=== PATIENT | male | born 1970 | race Two or more races ===

== ENCOUNTER 2025-10-18 21:18 | Emergency (ER) | payer MEDICAID ==
[~2025-10-18] VITALS: Ht 175.3 cm; Wt 88.6 kg
[~2025-10-18 21:18] MED LIST: ONDA-243 PO
--- NOTE | 2025-10-18 21:41 | Physician Documentation ---
History of Present Illness ~ Chief Complaint: Jaw Pain Stated Complaint: JAW SWELLING Time Seen by MD: 21:27 HPI 54-year-old male presents to the ED with a complaint of toothache with tissue swelling and a raised area on his left lower cheek. Denies any fevers or nausea vomiting but reports increased pain and swelling. States he has has a long history of tooth problems was supposed to have multiple teeth extracted but they were not for unknown reasons Day of Onset: Oct 18, 2025 Medication Reconciliation Allergies: Coded Allergies: No Known Allergies (Unverified , 10/03/17) Scheduled PRN ONDANSETRON ODT 4mg tablet (Ondansetron Odt), 1 TABLET PO Q6H PRN for nausea/vomiting Past Medical History Past Medical History: No Pertinent History Past Surgical History: noncontributory Lives In: Home Occupation: employed Review of Systems All Other Systems at this time: Reviewed and Negative ROS As stated above in the HPI, otherwise all systems are reviewed and negative. Physical Exam Vital Signs: Temperature: 98.4, Source: Oral, Heart Rate: 118, Respiratory Rate: 16, BP: 133/79, Pulse Oximetry: 100, Weight: 88.600 Oxygen Flow Rate: 0 Physical Exam General: Alert, no apparent distress. HEENT: PERRL, EOMI, no injection, moist mucous membranes. notable swelling left cheek with a point tender fluctuant area.very poor dentitiion Neck: Full range of motion. , Respiratory: Lungs clear, no respiratory distress. Neurologic: Oriented x4. Psychiatric: Normal mood and affect. Skin: Normal color, warm and dry. No edema, no ecchymosis. Procedures Procedure Note Patient and drainage was performed intraorally in the lateral aspect of the anterior lower jaw. Lidocaine with epi was infused in the region of the suspected abscess a 1 cm incision was made with an 11 blade. Nursing staff applied suction and gross purulent discharge was evident. Tolerated procedure well we will place him on oral antibiotics and have him follow up with the dentistry Progress Results/Orders Results/Orders Orders - ELIEZER DILL NP Laceration/I&D Tray Set Up (10/18/25 ) Amox Tr/Potassium Clavulanate (Augmentin (10/18/25 21:45) Completed Orders - ELIEZER DILL NP Lidocaine 1% W/Epi 1:100,000 (Xylocaine (10/18/25 21:45) Vital Signs 10/18/25 10/18/25 21:21 21:35 Temp 98.4 Pulse 118 Resp 16 B/P (MAP) 133/79 Pulse Ox 100 O2 Flow Rate 0 Medical Decision Making Additional information obtaine: old records Findings See procedure notes discharge on oral antibiotics Differential Dx:Considerations: Include: Abrasion, Contusion, Cerebral contusion, Cervical spine injury, Closed head injury, Encephalopathy, Foreign body, Fracture, facial, Intoxication-alcohol, Intoxication-other drug, Laceration, Other Departure Disposition: HOME / SELF CARE / HOMELESS Impression: Primary Impression: Jaw pain Additional Impression: Dental abscess Condition: Improved Discharge Instructions: Dental Abscess Additional Instructions: Please allow your abscess to drain take oral antibiotics to their completion to prevent any further exacerbation Referrals: NO PRIMARY CARE PROVIDER (PCP) Prescriptions Amox Tr/Potassium Clavulanate (Augmentin 875-125 Tablet) 1 Each Tablet 1 TAB PO Q12H for 10 Days, #20 TAB Prov: ELIEZER DILL NP 10/18/25 Education Educated: Patient Educated regarding: diagnosis Signature Scribe Signature: u Attestation: Scribed for Eliezer Dill [employer] Professor by Eliezer Peralta NP . 10/18/25 21:59 ELIEZER DILL NP Oct 18, 2025 21:41
[2025-10-18] MEDS: LIDOcaine 1% W/epiNEPHrine 1:100,000 20ml vial SQ ONE (21:59)
[2025-10-18] MEDS ORDERED: AMOX-117 PO (21:59)
[2025-10-18] MEDS: amox tr/potassium clavulanate 875/125mg TAB PO ONE (22:06)
[2025-10-18 22:57] VITALS: BP 126/78; PULSE 78; RESP 14; TEMP 98.4; O2SAT 98
== END 2025-10-18 23:01 | disposition home or self-care (01) ==
LOC: ER 21:18
DX: K04.7 Periapical abscess without sinus (principal); R68.84 Jaw pain
CPT/HCPCS: 41800; 99284